=== PATIENT | male | born 1965 | race African-American/Black ===

== ENCOUNTER 2017-08-03 22:23 | Emergency (ER) | payer MEDICARE, MEDICAID ==
[2017-08-04 00:03] LABS: #Basophils 0.1 thou/uL (0.0-0.2); #Eosinphils 0.2 thou/uL (0.0-0.7); #Lymphocytes 3.1 thou/uL (1.20-3.40); #Monocytes 0.6 thou/uL (0.11-0.59); %Basophils 0.9 % (0.0-1.0); %Eosinophils 2.4 % (0.0-10.0); %Lymphocytes 34.4 % (21.0-51.0); %Monocytes 6.9 % (0.0-10.0); %Neutrophils 55.4 % (42.0-75.0); Hemoglobin 14.4 g/dL (14.0-18.0); Mean Corpuscular HGB CONC 33.6 g/dL (32.0-36.0); Mean Corpuscular Hemoglobin 31.9 pg (27.0-31.0); Mean Corpuscular Volume 94.9 fl (80.0-94.0); Mean Platelet Volume 6.3 fL (7.4-10.4); Platelet Count 372 thou/uL (130-400); RBC Distribution Width 11.8 % (11.5-14.5); Red Blood Cell (RBC) Count 4.52 mill/uL (4.70-6.10); White Blood Cell (WBC) Count 9.1 thou/uL (4.8-10.8)
[2017-08-04] MEDS ORDERED: Morphine 4 MG/ML VIAL ONE (00:31)
[2017-08-04 00:33] LABS: ALT (SGPT) 28 U/L (8-55); AST (SGOT) 25 U/L (5-34); Albumin 4.3 g/dL (3.5-5.0); Alkaline Phosphatase 120 U/L (40-150); Anion Gap 9 mmol/L (10-20); BUN (Urea Nitrogen) 14 mg/dL (8.4-25.7); Bilirubin, Total 0.4 mg/dL (0.2-1.2); Calc. Creatinine Clearance 0 mL/min (70-130); Calcium 10.6 mg/dL (7.8-10.44); Carbon Dioxide 29 mmol/L (22-29); Chloride 103 mmol/L (98-107); Estimated GFR-MDRD Greater than 90; Globulin 4.1 g/dL (2.4-3.5); Glucose 178 mg/dL (70-105); Potassium 4.2 mmol/L (3.5-5.1); Protein, Total 8.4 g/dL (6.0-8.3); Sodium 137 mmol/L (136-145)
[2017-08-04 00:37] LABS: Bilirubin Negative (Negative); Blood, Urine Negative (Negative); Clarity CLEAR (Clear); Glucose, Urine (Dipstick) 500 mg/dL (Negative); Leukocyte Negative (Negative); Nitrite Negative (Negative); Protein, Urine (Dipstick) Negative (Neg-Trace); Specific Gravity, Urine 1.027 (1.002-1.036); pH, Urine 6.5 (5.0-9.0)
[2017-08-04] MEDS ORDERED: Ketorolac Tromethamine 30 MG/ML VIAL ONE (02:55)
--- NOTE | 2017-08-04 09:00 | CT ---
PRELIMINARY REPORT/[facility]/EMERGENTY AFTER-HOURS PROCEDURE CT Abdomen and Pelvis Without Intravenous Contrast CLINICAL HISTORY: 51 years old, male; Pain; Abdominal pain; Flank; Right upper quadrant (ruq); Patient HX: 51m reports r flank pain starting yesterday, not migrating into lower abdomen. Pain in waves, shooting, denies na usea or vomiting or change in urination or stool. TECHNIQUE: Axial computed tomography images of the abdomen and pelvis without intravenous contrast. Coronal refo rmatted images were created and reviewed. COMPARISON: No relevant prior studies available. FINDINGS: Lung bases: Normal. No mass. No consolidation. ABDOMEN: Liver: Normal. Gallbladder and bile ducts: Normal. Pancreas: Normal. Spleen: Normal. Adrenals: Normal. Kidneys and ureters: Bilateral simple renal cysts, the largest on the left measuring 2.9 cm in diamet er. Stomach and bowel: Normal. PELVIS: Appendix: Appendix is normal. Bladder: Normal. Reproductive: Normal as visualized. ABDOMEN and PELVIS: Intraperitoneal space: Normal. No free air. No significant fluid collection. Bones/joints: Partially visualized nondisplaced subacute appearing left posterolateral eighth rib fra cture. Degenerative changes of the visualized lower thoracic spine. No dislocation. Soft tissues: Normal. Vasculature: Atherosclerotic disease of the abdominal aorta and iliac arteries. Phleboliths within th e pelvis. No abdominal aortic aneurysm. Lymph nodes: Normal. IMPRESSION: 1. Partially visualized nondisplaced subacute appearing left posterolateral eighth rib fracture. 2. Incidental/non-acute findings are described above. Thank you for allowing us to participate in the care of your patient. Dictated and Authenticated by: Lewis Finch MD 08/04/2017 12:56 AM Central Time ([place] & [place]) FINAL REPORT CT ABDOMEN AND PELVIS WITHOUT CONTRAST STONE PROTOCOL: HISTORY: Right flank pain. COMPARISON: None. FINDINGS: Findings and impression are concordant with the preliminary report. No acute inflammatory process in the abdomen or pelvis. There is calcification of the common left adductor tendon likely from prior injury. 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 POS: [facility]
== END 2017-08-04 03:40 | disposition home or self-care (01) ==
LOC: ERS 22:23
DX: S39.012A Strain of muscle, fascia and tendon of lower back, initial encounter (principal); S29.012A Strain of muscle and tendon of back wall of thorax, initial encounter; E78.5 Hyperlipidemia, unspecified; I48.91 Unspecified atrial fibrillation; E11.9 Type 2 diabetes mellitus without complications; I10 Essential (primary) hypertension; Z79.4 Long term (current) use of insulin; F17.210 Nicotine dependence, cigarettes, uncomplicated; X58.XXXA Exposure to other specified factors, initial encounter
CPT/HCPCS: 36415; 74176; 80053; 81003; 85025; 96374; 96375; J1885; J2270

== ENCOUNTER 2017-10-12 13:02 | Outpatient (CLI) | payer MEDICARE, MEDICAID ==
--- NOTE | 2017-10-12 16:35 | MRI ---
MRI PELVIS WITH AND WITHOUT CONTRAST: Date: 10/12/17 HISTORY: Old injury. Pain. COMPARISON: CT from 08/04/17. FINDINGS: Bones: No acute fracture. No malalignment. No stress edema. There is ossification of the anterior labrum bilaterally. Acetabular osteophytes are also present. There is old injury of the left superior pubic ramus/pubic body at the cone insertion of the adductor longus and pectineus tendons. This is an old displaced avulsion/heterotopic ossification. Muscles: Muscle signal and bulk is normal. Intrapelvic Soft Tissues: Unremarkable. IMPRESSION: 1. Large ossicle/heterotopic ossification at the insertion of the left adductor longus tendon and pe ctineus tendon from prior injury. No significant edema to suggest chronicity and lack of micromotion. 2. Ossification in both lateral labrum, as well as anterior acetabular and lateral acetabular osteop hyte formation. 3. Moderate degenerative disease of the L5-S1 disc space. POS: [facility]
== END 2017-10-12 13:03 | disposition home or self-care (01) ==
LOC: SCSMRI 13:02
PROVIDERS: ATTEND Family Medicine
DX: R10.2 Pelvic and perineal pain (principal); M51.37 Other intervertebral disc degeneration, lumbosacral region; M25.759 Osteophyte, unspecified hip
CPT/HCPCS: 72197

== ENCOUNTER 2017-12-14 06:15 | Day surgery (SDC) | payer MEDICARE, MEDICAID ==
[2017-12-13 16:19] VITALS: BMI 23.7
[2017-12-14] MEDS ORDERED: Diazepam 5 MG TAB ONE (06:29)
[2017-12-14] MEDS ORDERED: Lidocaine 1% (PF) 30 ML VIAL ONE (06:38)
[2017-12-14 06:59] LABS: #Basophils 0.1 thou/uL (0.0-0.2); #Eosinphils 0.4 thou/uL (0.0-0.7); #Lymphocytes 2.8 thou/uL (1.20-3.40); #Monocytes 0.6 thou/uL (0.11-0.59); #Neutrophils 6.1 thou/uL (1.40-6.50); %Basophils 0.7 % (0.0-1.0); %Eosinophils 3.8 % (0.0-10.0); %Lymphocytes 27.8 % (21.0-51.0); %Monocytes 6.3 % (0.0-10.0); %Neutrophils 61.3 % (42.0-75.0); Hemoglobin 12.3 g/dL (14.0-18.0); Mean Corpuscular HGB CONC 33.2 g/dL (32.0-36.0); Mean Corpuscular Hemoglobin 31.1 pg (27.0-31.0); Mean Corpuscular Volume 93.6 fL (78.0-98.0); Mean Platelet Volume 6.5 fL (7.4-10.4); Platelet Count 444 thou/uL (130-400); RBC Distribution Width 11.8 % (11.5-14.5); Red Blood Cell (RBC) Count 3.97 mill/uL (4.70-6.10)
[2017-12-14 07:04] LABS: INR-International Normal Ratio 0.9; PTT 34.4 SEC (22.9-36.1); Prothrombin Time 12.5 SEC (12.0-14.7)
[2017-12-14] MEDS ORDERED: Midazolam HCl 2 mg/2 ml Vial ONE (07:23)
[2017-12-14] MEDS ORDERED: Fentanyl 100 MCG/2 ML VIAL ONE (07:23)
[2017-12-14] MEDS ORDERED: Nitroglycerin 100MG/250ML BOT 250 ML ONE (07:48)
[2017-12-14] MEDS ORDERED: Iopamidol 370 76% 100 ML VIAL ONE (09:33)
== END 2017-12-14 13:15 | disposition home or self-care (01) ==
LOC: CCL 06:15
PROVIDERS: ATTEND Internal Medicine Cardiovascular Disease
PROC: 4A023N7 Measurement of Cardiac Sampling and Pressure, Left Heart, Percutaneous Approach (ICD-10-PCS; principal; 2017-12-14)
PROC: B2111ZZ Fluoroscopy of Multiple Coronary Arteries using Low Osmolar Contrast (ICD-10-PCS; 2017-12-14)
DX: I25.118 Atherosclerotic heart disease of native coronary artery with other forms of angina pectoris (principal); E78.00 Pure hypercholesterolemia, unspecified; I95.1 Orthostatic hypotension; I10 Essential (primary) hypertension; E11.9 Type 2 diabetes mellitus without complications; F17.210 Nicotine dependence, cigarettes, uncomplicated; Z79.4 Long term (current) use of insulin; Z79.899 Other long term (current) drug therapy; Z88.8 Allergy status to other drugs, medicaments and biological substances
CPT/HCPCS: 76942; 85025; 85610; 85730; 93458; C1769; 36415; 99152; 99153; J1644; J2001; J2250; J3010

== ENCOUNTER 2018-09-21 02:36 | Emergency (ER) | payer MEDICARE, MEDICAID ==
[2018-09-21] MEDS ORDERED: Lidocaine Viscous Sol 2% 15 ml UD Cup ONE (03:16)
[2018-09-21] MEDS ORDERED: Mag-Al 1200 mg/1200 mg/30 ML UDCUP ONE (03:16)
[2018-09-21] MEDS ORDERED: Dexamethasone 4 MG TAB ONE (03:16)
== END 2018-09-21 03:50 | disposition home or self-care (01) ==
LOC: ERS 02:36
DX: J02.9 Acute pharyngitis, unspecified (principal); H92.09 Otalgia, unspecified ear; I48.91 Unspecified atrial fibrillation; E78.5 Hyperlipidemia, unspecified; E11.9 Type 2 diabetes mellitus without complications; F17.210 Nicotine dependence, cigarettes, uncomplicated; Z79.4 Long term (current) use of insulin
CPT/HCPCS: 99282; J8540

== ENCOUNTER 2018-09-26 18:32 | Emergency (ER) | payer MEDICARE, OTHER | END 2018-09-26 20:20 | disposition home or self-care (01) | LOC: ERS 18:32 | DX: R59.0 Localized enlarged lymph nodes (principal); I49.9 Cardiac arrhythmia, unspecified; I48.91 Unspecified atrial fibrillation; I10 Essential (primary) hypertension; E11.9 Type 2 diabetes mellitus without complications; E78.5 Hyperlipidemia, unspecified; F17.210 Nicotine dependence, cigarettes, uncomplicated; Z79.4 Long term (current) use of insulin | CPT/HCPCS: 93005 ==

== ENCOUNTER 2018-11-14 10:43 | Outpatient (CLI) | payer MEDICARE, OTHER ==
--- NOTE | 2018-11-14 10:58 | RAD ---
2 views of the lumbar spine: 11/14/2018 COMPARISON: None HISTORY: Acute bilateral low back pain FINDINGS: 5 lumbar type vertebral bodies are present. Lumbar pedicles appear intact on frontal imaging. There is multilevel mild disc space narrowing. There is significant anterior osteophyte formation at L1-2, L2-3, and L3-4. There is lower lumbar spine facet hypertrophy at L4-5 and L5-S1. No acute fracture identified. IMPRESSION: Multilevel degenerative change. No acute osseous abnormality. Recommend MRI if there are radicular symptoms.
== END 2018-11-14 10:44 | disposition home or self-care (01) ==
LOC: BICRAD 10:43
PROVIDERS: ATTEND Family Medicine
DX: M54.5 Low back pain (principal); M47.816 Spondylosis without myelopathy or radiculopathy, lumbar region
CPT/HCPCS: 36415; 72100; 80061; 80069; 82330; 83036; 83970; 84450; 84460; 85540

== ENCOUNTER 2020-02-27 07:01 | Outpatient (CLI) | payer MEDICARE, MEDICAID ==
--- NOTE | 2020-02-27 08:48 | CT ---
Low-dose screening chest CT: 02/27/2020 COMPARISON: None. HISTORY: Lung cancer screening exam, current smoker, personal history of nicotine dependence. TECHNIQUE: Axial CT imaging at 2 mm intervals through the chest without contrast using the low-dose s creening chest CT protocol. Coronal and sagittal reformatted imaging obtained. FINDINGS: Limited assessment of the upper abdomen demonstrates partially visualized bilateral renal cysts measu ring up to 3.5 cm on the left. Scattered atherosclerotic calcification of the imaged upper abdominal aorta is noted. There is no pleural, pericardial, or mediastinal fluid seen. The lack of contrast media limits assessment of the imaged viscera, the vascular structures, and for lymphadenopathy. There is atherosclerotic calcification of the coronary arterial vasculature. No pneumothorax noted. Linear density in the lingula on axial image 100 and coronal image 56 noted, likely representing scar and/or volume loss. No dominant pulmonary parenchymal mass lesion/nodule is noted within the left lung. There is a linear area of increased density within the lateral right upper lobe on axial image 51 sug gesting scar and/or volume loss. No suspicious pulmonary parenchymal mass lesion/nodule is appreciated within the right lung. There is linear scar within the anterior aspect of the right middl e lobe. Review of the osseous structures demonstrates no worrisome lytic or blastic bone lesion. There is mul tilevel anterior/right lateral thoracic spine osteophyte formation. There is a small intramuscular lipoma posterior to the medial aspect of the left 11th rib. IMPRESSION: 1. Lung RADS category 1-negative. Recommend continued annual low-dose screening chest CT. 2. Lung RADS category S: Atherosclerotic disease including coronary arterial calcification. Incomple tely assessed bilateral renal cysts. Transcribed Date/Time: 02/27/2020 8:56 AM
== END 2020-02-27 07:02 | disposition home or self-care (01) ==
LOC: BICCT 07:01
PROVIDERS: ATTEND Nurse Practitioner Family
DX: Z12.2 Encounter for screening for malignant neoplasm of respiratory organs (principal); Z87.891 Personal history of nicotine dependence; I25.10 Atherosclerotic heart disease of native coronary artery without angina pectoris
CPT/HCPCS: G0297

== ENCOUNTER 2020-06-28 18:38 | Emergency (ER) | payer MEDICARE, MEDICAID ==
[2020-06-28] MEDS ORDERED: Dexamethasone 4 MG TAB ONE (19:00)
[2020-06-29 03:30] LABS: SARS-CoV-2 PCR by NAA Not Detected (NotDetected)
== END 2020-06-28 19:52 | disposition home or self-care (01) ==
LOC: ERS 18:38
DX: R05 Cough (principal); Z20.822 Contact with and (suspected) exposure to COVID-19; E78.5 Hyperlipidemia, unspecified; F17.210 Nicotine dependence, cigarettes, uncomplicated; I10 Essential (primary) hypertension; Z79.899 Other long term (current) drug therapy; Z79.82 Long term (current) use of aspirin
CPT/HCPCS: 93005; 99281; U0003; U0005; 87635; J8540

== ENCOUNTER 2020-09-03 00:47 | Inpatient (IN) | payer MEDICARE, MEDICAID ==
[2020-09-03 01:36] LABS: #Monocytes 0.4 thou/uL (0.11-0.59); #Neutrophils 7.9 thou/uL (1.40-6.50); %Basophils 0.1 % (0.0-1.0); %Eosinophils 0.1 % (0.0-10.0); %Lymphocytes 10.6 % (21.0-51.0); %Monocytes 4.1 % (0.0-10.0); %Neutrophils 85.1 % (42.0-75.0); Mean Corpuscular HGB CONC 34.8 g/dL (32.0-36.0); Mean Corpuscular Hemoglobin 31.7 pg (27.0-31.0); Mean Corpuscular Volume 91.1 fL (78.0-98.0); Mean Platelet Volume 8.3 fL (7.4-10.4); Platelet Count 210 thou/uL (130-400); RBC Distribution Width 12.4 % (11.5-14.5); Red Blood Cell (RBC) Count 4.12 mill/uL (4.70-6.10); White Blood Cell (WBC) Count 9.3 thou/uL (4.8-10.8)
[2020-09-03 01:57] LABS: ALT (SGPT) 87 U/L (8-55); AST (SGOT) 119 U/L (5-34); Albumin 3.6 g/dL (3.5-5.0); Alkaline Phosphatase 94 U/L (40-110); Anion Gap 21 mmol/L (10-20); BUN (Urea Nitrogen) 23 mg/dL (8.4-25.7); CK (CPK) 281 U/L (30-200); Calc. Creatinine Clearance 0 mL/min (70-130); Calcium 9.4 mg/dL (7.8-10.44); Carbon Dioxide 12 mmol/L (22-29); Chloride 98 mmol/L (98-107); Globulin 3.8 g/dL (2.4-3.5); Glucose 426 mg/dL (70-105); Lipase 32 U/L (8-78); Protein, Total 7.4 g/dL (6.0-8.3); Sodium 127 mmol/L (136-145)
[2020-09-03 02:32] LABS: Actual Bicarbonate (HCO3v) 16 mEq/L (22-28); Analyzer IN Cardio ER; Base Excess -7.4 mEq/L (-2.0 to +3.0); Calcium, Ionized (venous) 1.13 mmol/L (1.16-1.32); Chloride (VBG) 101 mmol/L (98-106); Hemoglobin (Hb) 12.2 g/dL (13.1-17.2); Potassium (VBG) 3.78 mmol/L (3.70-5.30); Sodium 127.6 mmol/L (133-146); pH (venous) 7.39 (7.32-7.43)
[2020-09-03] MEDS ORDERED: Cefepime 1 GM VIAL ONE (02:54)
[2020-09-03] MEDS ORDERED: Cefepime 2 GM VIAL ONE (02:54)
[2020-09-03] MEDS ORDERED: Vancomycin 1.5 GRAM/300 ML BAG 1.5 GM in Premix Bag 1 BAG IVPB SCH (03:00)
[2020-09-03 03:49] LABS: Bilirubin Negative (Negative); Blood, Urine Small (Negative); Glucose, Urine (Dipstick) >=1000 mg/dL (Negative); Ketone, Urine Trace mg/dL (Negative); Leukocyte Negative (Negative); Nitrite Negative (Negative); Protein, Urine (Dipstick) Negative (Neg-Trace); Urobilinogen 0.2 mg/dL (Less than 2)
[2020-09-03 03:59] LABS: Clarity Clear (Clear)
[2020-09-03 04:00] LABS: Specific Gravity, Urine Greater than 1.036 (1.002-1.036)
[2020-09-03 04:33] LABS: SARS-CoV-2 NAA Rapid Test Not Detected (NotDetected)
[2020-09-03 04:36] LABS: Lactic Acid 1.3 mmol/L (0.5-2.2)
[2020-09-03] MEDS ORDERED: INSULIN REGULAR IN 0.9 % NACL 100 UNIT/100 ML BAG ONE (05:04)
[2020-09-03] MEDS ORDERED: NS 0.9% w/ 20 MEQ KCL 1,000 ML ONE (05:12)
[2020-09-03] MEDS ORDERED: D5 1/2 NS w/20 mEq KCL 1,000 ML ONE (06:39)
[2020-09-03] MEDS ORDERED: Ondansetron PF 4 MG/2 ML Vial IVP PRN (06:54)
[2020-09-03] MEDS ORDERED: Electrolyte Replacement Protocol 1 EACH IVPB SCH (06:54)
[2020-09-03] MEDS ORDERED: Dextrose 5 %-0.45 % NaCl 1,000 ML IV PRN (06:54)
[2020-09-03] MEDS ORDERED: Sodium Chloride 0.9% 1,000 ML IV PRN ×4 (06:54)
[2020-09-03] MEDS ORDERED: Acetaminophen 325 MG TAB PO PRN (06:54)
[2020-09-03] MEDS ORDERED: NS 0.9% w/ 20 MEQ KCL 1,000 ML IV PRN ×2 (06:54)
[2020-09-03] MEDS ORDERED: HUMULIN R 100 UNITS in Sodium Chloride 0.9% 100 ML IVPB SCH (07:00)
[2020-09-03 07:23] LABS: Hemoglobin A1c 7.2 % (4.0-6.0)
[2020-09-03 07:39] LABS: Acetaminophen Less than 6.0 mcg/mL (10.0-30.0); Anion Gap 19 mmol/L (10-20); BUN (Urea Nitrogen) 19 mg/dL (8.4-25.7); Calc. Creatinine Clearance 0 mL/min (70-130); Calcium 8.7 mg/dL (7.8-10.44); Chloride 109 mmol/L (98-107); Glucose 206 mg/dL (70-105); Potassium 4.8 mmol/L (3.5-5.1); Sodium 131 mmol/L (136-145)
[2020-09-03 07:48] LABS: Carbon Dioxide 8 mmol/L (22-29)
[2020-09-03 08:03] VITALS: BMI 23.7
[2020-09-03 08:15] LABS: Medtox Reader # READER 4
[2020-09-03 08:16] LABS: Amphetamine Not Detected (NotDetected); Barbiturates Screen Not Detected (NotDetected); Benzodiazepine Screen Not Detected (NotDetected); Cocaine Metabolite Screen Not Detected (NotDetected); Medtox Control Line Valid? VALID (VALID); Methadone Not Detected (NotDetected); Methamphetamine Not Detected (NotDetected); Opiate Screen Not Detected (NotDetected); Oxycodone Screen Not Detected (NotDetected); Phencyclidine (PCP) Not Detected (NotDetected); THC/Cannabinoid Screen Detected (NotDetected); Tricyclic Screen Not Detected (NotDetected)
[2020-09-03] MEDS: Amlodipine 5 MG TAB PO SCH (09:13)
[2020-09-03] MEDS: Famotidine 20 MG TAB PO SCH ×2 (09:14→20:29)
[2020-09-03 09:21] LABS: HBCM Index 0.06 S/CO (0-0.79); HBSAg Index 0.24 S/CO (0-0.99); Hep A IgM AB Non-Reactive (NonReactive); Hep A IgM S/CO 0.11 S/CO (0-0.79); Hep B Surf Ag Non-Reactive S/CO (NonReactive); Hep C IgG Ab Non-Reactive (NonReactive); Hep C Index 0.11 S/CO (0-0.79); Hepatitis B Core IgM Abs Non-Reactive (NonReactive)
[2020-09-03] MEDS ORDERED: Iopamidol-370 76% 500 ML 1 ML ONE (09:23)
[2020-09-03 11:49] LABS: Anion Gap 15 mmol/L (10-20); BUN (Urea Nitrogen) 16 mg/dL (8.4-25.7); Calc. Creatinine Clearance 76 mL/min (70-130); Carbon Dioxide 14 mmol/L (22-29); Chloride 106 mmol/L (98-107); Glucose 270 mg/dL (70-105); Potassium 4.2 mmol/L (3.5-5.1); Sodium 131 mmol/L (136-145)
[2020-09-03 16:13] LABS: Anion Gap 14 mmol/L (10-20); BUN (Urea Nitrogen) 12 mg/dL (8.4-25.7); Calc. Creatinine Clearance 84 mL/min (70-130); Carbon Dioxide 16 mmol/L (22-29); Chloride 106 mmol/L (98-107); Glucose 156 mg/dL (70-105); Potassium 4.2 mmol/L (3.5-5.1); Sodium 132 mmol/L (136-145)
[2020-09-03] MEDS: D5 1/2 NS w/20 mEq KCL 1,000 ML IV PRN (21:34)
[2020-09-03] MEDS: Acetaminophen 500 MG TAB PO PRN (23:19)
[2020-09-03] MEDS ORDERED: Ibuprofen 600 MG TAB PO PRN (23:42)
[2020-09-04] MEDS: D5 1/2 NS w/20 mEq KCL 1,000 ML IV PRN ×2 (02:05→05:34)
[2020-09-04 03:22] LABS: #Lymphocytes 0.8 thou/uL (1.20-3.40); #Monocytes 0.1 thou/uL (0.11-0.59); #Neutrophils 4.6 thou/uL (1.40-6.50); %Basophils 0.3 % (0.0-1.0); %Eosinophils 0.2 % (0.0-10.0); %Lymphocytes 13.8 % (21.0-51.0); %Monocytes 2.5 % (0.0-10.0); %Neutrophils 83.2 % (42.0-75.0); Hemoglobin 11.5 g/dL (14.0-18.0); Mean Corpuscular HGB CONC 35.1 g/dL (32.0-36.0); Mean Corpuscular Hemoglobin 32.1 pg (27.0-31.0); Mean Corpuscular Volume 91.5 fL (78.0-98.0); Mean Platelet Volume 8.5 fL (7.4-10.4); Platelet Count 181 thou/uL (130-400); RBC Distribution Width 12.2 % (11.5-14.5); Red Blood Cell (RBC) Count 3.58 mill/uL (4.70-6.10); White Blood Cell (WBC) Count 5.6 thou/uL (4.8-10.8)
[2020-09-04 03:41] LABS: ALT (SGPT) 65 U/L (8-55); AST (SGOT) 87 U/L (5-34); Albumin 2.8 g/dL (3.5-5.0); Alkaline Phosphatase 75 U/L (40-110); Anion Gap 13 mmol/L (10-20); BUN (Urea Nitrogen) 6 mg/dL (8.4-25.7); Bilirubin, Direct 0.9 mg/dL (0.1-0.3); Bilirubin, Total 1.2 mg/dL (0.2-1.2); Calc. Creatinine Clearance 104 mL/min (70-130); Calcium 8.9 mg/dL (7.8-10.44); Carbon Dioxide 18 mmol/L (22-29); Chloride 103 mmol/L (98-107); Globulin 3.1 g/dL (2.4-3.5); Glucose 159 mg/dL (70-105); Potassium 3.9 mmol/L (3.5-5.1); Protein, Total 5.9 g/dL (6.0-8.3); Sodium 130 mmol/L (136-145)
[2020-09-04 03:50] LABS: Anion Gap 13 mmol/L (10-20); BUN (Urea Nitrogen) 6 mg/dL (8.4-25.7); Calc. Creatinine Clearance 98 mL/min (70-130); Carbon Dioxide 17 mmol/L (22-29); Chloride 104 mmol/L (98-107); Glucose 156 mg/dL (70-105); Potassium 3.9 mmol/L (3.5-5.1); Sodium 130 mmol/L (136-145)
[2020-09-04] MEDS: Amlodipine 5 MG TAB PO SCH (07:18)
[2020-09-04] MEDS: Famotidine 20 MG TAB PO SCH ×2 (07:18→20:40)
[2020-09-04] MEDS ORDERED: Dextrose 50% Abboject 50 ML SYRINGE SLOW IVP PRN ×2 (08:10→10:54)
[2020-09-04] MEDS ORDERED: Insulin Regular 300 UNITS/3 ML VIAL SC PRN ×2 (08:10)
[2020-09-04] MEDS ORDERED: Dextrose 5% in Water 1,000 ML IV PRN ×2 (08:10→10:54)
[2020-09-04] MEDS ORDERED: Lantus 1000 UNITS/10 ML VIAL SC SCH (09:00)
[2020-09-04] MEDS: Lactated Ringer's 1,000 ML IV SCH ×2 (09:57→16:34)
[2020-09-04] MEDS ORDERED: HumaLOG 300 UNITS/3 ML VIAL SC PRN (10:54)
[2020-09-04] MEDS ORDERED: HumuLIN 70/30 (300 UNITS/3 ML VIAL) SC SCH (15:00)
[2020-09-04] MEDS: HumaLOG 300 UNITS/3 ML VIAL SC PRN (16:32)
[2020-09-04] MEDS: Lantus 1000 UNITS/10 ML VIAL SC SCH (20:40)
[2020-09-04] MEDS: Amitriptyline HCl 10 MG TAB PO SCH (20:40)
[2020-09-05] MEDS: Acetaminophen 500 MG TAB PO PRN ×3 (00:15→21:24)
[2020-09-05] MEDS: Lactated Ringer's 1,000 ML IV SCH ×2 (04:48→17:01)
[2020-09-05 06:14] LABS: Anion Gap 16 mmol/L (10-20); BUN (Urea Nitrogen) 11 mg/dL (8.4-25.7); Calc. Creatinine Clearance 87 mL/min (70-130); Calcium 9.3 mg/dL (7.8-10.44); Carbon Dioxide 17 mmol/L (22-29); Chloride 103 mmol/L (98-107); Glucose 190 mg/dL (70-105); Potassium 4.5 mmol/L (3.5-5.1); Sodium 131 mmol/L (136-145)
[2020-09-05 06:15] LABS: Band 22 % (5-11); Hemoglobin 12.2 g/dL (14.0-18.0); Lymphocytes 13 % (21-51); MDiff Complete? YES; Mean Corpuscular HGB CONC 34.7 g/dL (32.0-36.0); Mean Corpuscular Hemoglobin 31.8 pg (27.0-31.0); Mean Corpuscular Volume 91.8 fL (78.0-98.0); Mean Platelet Volume 9.6 fL (7.4-10.4); Monocytes 1 % (0-10); Neutrophil 64 % (42-75); Platelet Count 182 thou/uL (130-400); Platelet Morphology Comment Appears Adequate; RBC Distribution Width 12.3 % (11.5-14.5); Red Blood Cell (RBC) Count 3.83 mill/uL (4.70-6.10); White Blood Cell (WBC) Count 7.3 thou/uL (4.8-10.8)
[2020-09-05 06:26] LABS: ALT (SGPT) 64 U/L (8-55); AST (SGOT) 100 U/L (5-34); Albumin 2.8 g/dL (3.5-5.0); Alkaline Phosphatase 96 U/L (40-110); Anion Gap 17 mmol/L (10-20); BUN (Urea Nitrogen) 11 mg/dL (8.4-25.7); Bilirubin, Direct 2.2 mg/dL (0.1-0.3); Calc. Creatinine Clearance 87 mL/min (70-130); Calcium 9.3 mg/dL (7.8-10.44); Carbon Dioxide 16 mmol/L (22-29); Chloride 104 mmol/L (98-107); Globulin 3.1 g/dL (2.4-3.5); Glucose 189 mg/dL (70-105); Potassium 4.6 mmol/L (3.5-5.1); Protein, Total 5.9 g/dL (6.0-8.3); Sodium 132 mmol/L (136-145)
[2020-09-05] MEDS ORDERED: Amlodipine 5 MG TAB PO SCH (09:00)
[2020-09-05] MEDS: Sodium Bicarbonate Tab 325 MG TAB PO SCH ×2 (09:32→21:25)
[2020-09-05] MEDS: Bupropion 150 MG XL TAB PO SCH (09:33)
[2020-09-05] MEDS: Montelukast Sodium 10 mg Tablet PO SCH (09:33)
[2020-09-05] MEDS: Famotidine 20 MG TAB PO SCH (09:33)
[2020-09-05] MEDS: Aspirin 81 mg Enteric Coated Tablet PO SCH (09:33)
[2020-09-05] MEDS: Gabapentin 300 MG CAP PO SCH (09:34)
[2020-09-05] MEDS: Lantus 1000 UNITS/10 ML VIAL SC SCH ×2 (09:40→21:33)
[2020-09-05] MEDS: HumaLOG 300 UNITS/3 ML VIAL SC PRN ×2 (11:26→17:12)
[2020-09-05] MEDS ORDERED: Pantoprazole 40 MG VIAL IVP SCH (12:15)
[2020-09-05 12:58] LABS: MONO NEGATIVE CONTROL ZONE White (Negative) (White); MONO POSITIVE CONTROL Pink Line (Positive) (PINK/RED); Mononucleosis NEGATIVE (NEGATIVE)
[2020-09-05] MEDS ORDERED: Sucralfate 1 GM TAB PO SCH (17:00)
[2020-09-05] MEDS ORDERED: Doxycycline 100 MG CAP PO SCH (18:15)
[2020-09-05] MEDS: Amitriptyline HCl 10 MG TAB PO SCH (21:26)
[2020-09-05] MEDS: Doxycycline 100 MG CAP PO SCH (21:26)
[2020-09-06] MEDS ORDERED: Lactated Ringer's 500 ML IV SCH (05:15)
[2020-09-06 05:44] LABS: Mean Corpuscular HGB CONC 33.6 g/dL (32.0-36.0); Mean Corpuscular Hemoglobin 31.1 pg (27.0-31.0); Mean Corpuscular Volume 92.7 fL (78.0-98.0); Mean Platelet Volume 10.3 fL (7.4-10.4); Platelet Count 139 thou/uL (130-400); RBC Distribution Width 12.5 % (11.5-14.5); Red Blood Cell (RBC) Count 3.86 mill/uL (4.70-6.10); White Blood Cell (WBC) Count 6.9 thou/uL (4.8-10.8)
[2020-09-06 05:58] LABS: ALT (SGPT) 63 U/L (8-55); AST (SGOT) 107 U/L (5-34); Albumin 2.6 g/dL (3.5-5.0); Alkaline Phosphatase 97 U/L (40-110); Anion Gap 15 mmol/L (10-20); BUN (Urea Nitrogen) 20 mg/dL (8.4-25.7); Bilirubin, Total 4.1 mg/dL (0.2-1.2); Calc. Creatinine Clearance 70 mL/min (70-130); Calcium 9.2 mg/dL (7.8-10.44); Carbon Dioxide 18 mmol/L (22-29); Chloride 105 mmol/L (98-107); Glucose 169 mg/dL (70-105); Potassium 4.1 mmol/L (3.5-5.1); Protein, Total 5.6 g/dL (6.0-8.3); Sodium 134 mmol/L (136-145)
[2020-09-06 06:20] LABS: Band 25 % (5-11); Lymphocytes 14 % (21-51); MDiff Complete? YES; Monocytes 1 % (0-10); Myelocyte 1 % (0-0); Neutrophil 59 % (42-75)
[2020-09-06] MEDS: Lactated Ringer's 1,000 ML IV SCH ×3 (06:20→13:06)
[2020-09-06 08:21] LABS: Ref Lab Test Ordered RICKETTSIA PCR; Reference Lab Name LABCORP
[2020-09-06 08:24] LABS: Ref Lab Test Ordered RICKETTSIA AB
[2020-09-06] MEDS ORDERED: Sodium Chloride 0.9% 1,000 ML IV SCH ×2 (08:45→12:45)
[2020-09-06] MEDS: Doxycycline 100 MG CAP PO SCH (09:03)
[2020-09-06] MEDS: Gabapentin 300 MG CAP PO SCH (09:04)
[2020-09-06] MEDS: Bupropion 150 MG XL TAB PO SCH (09:04)
[2020-09-06] MEDS: Sodium Bicarbonate Tab 325 MG TAB PO SCH ×2 (09:04→20:32)
[2020-09-06] MEDS: Montelukast Sodium 10 mg Tablet PO SCH (09:04)
[2020-09-06] MEDS: Aspirin 81 mg Enteric Coated Tablet PO SCH (09:04)
[2020-09-06] MEDS: Pantoprazole 40 MG VIAL IVP SCH (09:05)
[2020-09-06] MEDS: Acetaminophen 500 MG TAB PO PRN (09:07)
[2020-09-06] MEDS: Lantus 1000 UNITS/10 ML VIAL SC SCH ×2 (09:14→21:30)
[2020-09-06 11:36] LABS: Reference Lab Name LABCORP
[2020-09-06] MEDS ORDERED: Sodium Chloride 0.45% 1,000 ML IV SCH (12:30)
[2020-09-06] MEDS ORDERED: Guaifenesin DM 100-10/5 ML UDCUP PO PRN (16:04)
[2020-09-06] MEDS: Amitriptyline HCl 10 MG TAB PO SCH (20:32)
[2020-09-07] MEDS ORDERED: Baclofen 10 MG TAB PO SCH (01:45)
[2020-09-07 06:23] LABS: Hemoglobin 10.4 g/dL (14.0-18.0); Mean Corpuscular HGB CONC 35.7 g/dL (32.0-36.0); Mean Corpuscular Hemoglobin 32.6 pg (27.0-31.0); Mean Corpuscular Volume 91.4 fL (78.0-98.0); Mean Platelet Volume 10.6 fL (7.4-10.4); Platelet Count 104 thou/uL (130-400); RBC Distribution Width 12.6 % (11.5-14.5); White Blood Cell (WBC) Count 9.3 thou/uL (4.8-10.8)
[2020-09-07 06:34] LABS: ALT (SGPT) 51 U/L (8-55); AST (SGOT) 93 U/L (5-34); Albumin 2.3 g/dL (3.5-5.0); Alkaline Phosphatase 86 U/L (40-110); Anion Gap 14 mmol/L (10-20); BUN (Urea Nitrogen) 17 mg/dL (8.4-25.7); Bilirubin, Total 3.1 mg/dL (0.2-1.2); Calc. Creatinine Clearance 97 mL/min (70-130); Calcium 8.7 mg/dL (7.8-10.44); Carbon Dioxide 17 mmol/L (22-29); Chloride 111 mmol/L (98-107); Globulin 2.7 g/dL (2.4-3.5); Glucose 127 mg/dL (70-105); Potassium 3.9 mmol/L (3.5-5.1); Sodium 138 mmol/L (136-145)
[2020-09-07 06:50] LABS: Band 16 % (5-11); Lymphocytes 12 % (21-51); MDiff Complete? YES; Monocytes 4 % (0-10); Neutrophil 68 % (42-75); Platelet Morphology Comment Appears Decreased
[2020-09-07] MEDS: Sodium Bicarbonate Tab 325 MG TAB PO SCH ×2 (09:42→21:02)
[2020-09-07] MEDS: Bupropion 150 MG XL TAB PO SCH (09:42)
[2020-09-07] MEDS: Lactated Ringer's 1,000 ML IV SCH ×4 (09:42→22:48)
[2020-09-07] MEDS: Aspirin 81 mg Enteric Coated Tablet PO SCH (09:42)
[2020-09-07] MEDS: Gabapentin 300 MG CAP PO SCH (09:43)
[2020-09-07] MEDS: Montelukast Sodium 10 mg Tablet PO SCH (09:43)
[2020-09-07] MEDS: Pantoprazole 40 MG VIAL IVP SCH (09:44)
[2020-09-07] MEDS: Lantus 1000 UNITS/10 ML VIAL SC SCH ×2 (09:55→21:01)
[2020-09-07] MEDS ORDERED: chlorproMAZINE HCl 25 MG in Sodium Chloride 0.9% 50 ML IVPB PRN (10:36)
[2020-09-07] MEDS ORDERED: Enoxaparin Sodium 40 MG/0.4 ML SYRINGE SC SCH (10:45)
[2020-09-07] MEDS: Amitriptyline HCl 10 MG TAB PO SCH (21:02)
[2020-09-08 05:14] LABS: Anion Gap 13 mmol/L (10-20); BUN (Urea Nitrogen) 14 mg/dL (8.4-25.7); Calc. Creatinine Clearance 106 mL/min (70-130); Calcium 8.9 mg/dL (7.8-10.44); Carbon Dioxide 18 mmol/L (22-29); Chloride 114 mmol/L (98-107); Glucose 115 mg/dL (70-105); Potassium 3.8 mmol/L (3.5-5.1); Sodium 141 mmol/L (136-145)
[2020-09-08] MEDS: Acetaminophen 500 MG TAB PO PRN (08:36)
[2020-09-08] MEDS: Montelukast Sodium 10 mg Tablet PO SCH (08:37)
[2020-09-08] MEDS: Bupropion 150 MG XL TAB PO SCH (08:37)
[2020-09-08] MEDS: Sodium Bicarbonate Tab 325 MG TAB PO SCH (08:37)
[2020-09-08] MEDS: Aspirin 81 mg Enteric Coated Tablet PO SCH (08:37)
[2020-09-08] MEDS: Gabapentin 300 MG CAP PO SCH (08:38)
[2020-09-08] MEDS: Pantoprazole 40 MG VIAL IVP SCH (08:39)
[2020-09-08] MEDS: Lantus 1000 UNITS/10 ML VIAL SC SCH (08:40)
[2020-09-08] MEDS: Lactated Ringer's 1,000 ML IV SCH ×2 (08:43→16:13)
[2020-09-08] MEDS ORDERED: Enoxaparin Sodium 40 MG/0.4 ML SYRINGE SC SCH (09:00)
[2020-09-08 15:37] VITALS: BP 133/77; TEMP 97.9
== END 2020-09-08 16:35 | disposition left against medical advice (07) | DRG 871 ==
LOC: ERS 00:47 → ERHOLD 04:43 → IMCU/EMU 07:24 → 2SE 09-04 18:18
PROVIDERS: ADMIT Internal Medicine; ATTEND Internal Medicine
DX: A41.9 Sepsis, unspecified organism (principal); E11.10 Type 2 diabetes mellitus with ketoacidosis without coma; G93.41 Metabolic encephalopathy; E87.1 Hypo-osmolality and hyponatremia; N17.9 Acute kidney failure, unspecified; Z20.822 Contact with and (suspected) exposure to COVID-19; B88.2 Other arthropod infestations; E78.5 Hyperlipidemia, unspecified; I10 Essential (primary) hypertension; I25.10 Atherosclerotic heart disease of native coronary artery without angina pectoris; D64.9 Anemia, unspecified; F10.10 Alcohol abuse, uncomplicated; E78.2 Mixed hyperlipidemia; F17.210 Nicotine dependence, cigarettes, uncomplicated; F12.10 Cannabis abuse, uncomplicated; E86.0 Dehydration; R74.8 Abnormal levels of other serum enzymes; E11.40 Type 2 diabetes mellitus with diabetic neuropathy, unspecified; E11.65 Type 2 diabetes mellitus with hyperglycemia; R06.6 Hiccough; R19.7 Diarrhea, unspecified; Z79.899 Other long term (current) drug therapy; Z79.4 Long term (current) use of insulin; Z79.82 Long term (current) use of aspirin
CPT/HCPCS: 36415; 36416; 70450; 71045; 71046; 74177; 76705; 80048; 80053; 80074; 80076; 80143; 80306; 81003; 81015; 82010; 82550; 82805; 83036; 83605; 83690; 84484; 85025; 86308; 87040; 87086; 87633; 93005; 96365; 96366; 96367; 80307; C9113; J0692; J1650; J1815; J2405; J3230; J3370; J3480; J3490; Q9967; U0002; U0005

== ENCOUNTER 2022-10-03 20:57 | Observation (INO) | payer MEDICARE, OTHER ==
[2022-10-03] MEDS ORDERED: Acetaminophen 500 MG TAB ONE (21:14)
[2022-10-03] MEDS ORDERED: Boostrix 0.5 ML (Tdap) VIAL (>/=7 yrs of age) ONE (21:14)
[2022-10-03 21:33] LABS: #Eosinphils 0.2 thou/uL (0.0-0.7); #Monocytes 0.8 thou/uL (0.11-0.59); #Neutrophils 6.5 thou/uL (1.40-6.50); %Basophils 0.3 % (0.0-1.0); %Monocytes 7.6 % (0.0-10.0); %Neutrophils 58.6 % (42.0-75.0); Mean Corpuscular HGB CONC 32.5 g/dL (32.0-36.0); Mean Corpuscular Hemoglobin 30.8 pg (27.0-31.0); Mean Corpuscular Volume 94.9 fl (78.0-98.0); Mean Platelet Volume 9.6 fL (7.4-10.4); Platelet Count 365 10x3/uL (130-400); RBC Distribution Width 13.2 % (11.5-14.5); Red Blood Cell (RBC) Count 4.54 mill/uL (4.70-6.10); White Blood Cell (WBC) Count 11.1 10x3/uL (4.8-10.8)
[2022-10-03 21:58] LABS: ALT (SGPT) 24 U/L (8-55); AST (SGOT) 21 U/L (5-34); Albumin 4.8 g/dL (3.5-5.0); Alkaline Phosphatase 130 U/L (40-110); Anion Gap 16 mmol/L (10-20); BUN (Urea Nitrogen) 18 mg/dL (8.4-25.7); Bilirubin, Total 0.3 mg/dL (0.2-1.2); Calc. Creatinine Clearance 0 mL/min (70-130); Carbon Dioxide 20 mmol/L (22-29); Chloride 106 mmol/L (98-107); Estimated GFR 50; Globulin 3.6 g/dL (2.4-3.5); Glucose 109 mg/dL (70-105); Magnesium 2.3 mg/dL (1.6-2.6); Potassium 3.9 mmol/L (3.5-5.1); Protein, Total 8.4 g/dL (6.0-8.3); Sodium 138 mmol/L (136-145)
[2022-10-04] MEDS ORDERED: Glucagon 1 MG/ML KIT IM PRN (00:55)
[2022-10-04] MEDS ORDERED: Dextrose 5% in Water 1,000 ML IV PRN (00:55)
[2022-10-04] MEDS ORDERED: Acetaminophen 325 MG TAB PO PRN (00:55)
[2022-10-04] MEDS ORDERED: HumaLOG 300 UNITS/3 ML VIAL SC PRN ×2 (00:55)
[2022-10-04] MEDS ORDERED: Ondansetron PF 4 MG/2 ML Vial IVP PRN (00:55)
[2022-10-04] MEDS ORDERED: Ondansetron ODT 4 MG TAB PO PRN (00:55)
[2022-10-04] MEDS ORDERED: Dextrose 50% Abboject 50 ML SYRINGE SLOW IVP PRN (00:55)
[2022-10-04] MEDS ORDERED: Nicotine 21 MG PATCH TD PRN (00:55)
[2022-10-04 01:03] LABS: Troponin I Less than 0.010 ng/mL (< 0.028)
[2022-10-04 01:40] VITALS: BMI 23.8
[2022-10-04] MEDS ORDERED: Lorazepam 2 MG/ML VIAL SLOW IVP PRN (01:47)
[2022-10-04] MEDS: Sodium Chloride 0.9% 1,000 ML IV SCH ×2 (01:58→13:01)
[2022-10-04 02:38] LABS: #Eosinphils 0.3 thou/uL (0.0-0.7); #Monocytes 0.6 thou/uL (0.11-0.59); #Neutrophils 3.8 thou/uL (1.40-6.50); %Basophils 0.5 % (0.0-1.0); %Eosinophils 4.2 % (0.0-10.0); %Lymphocytes 41.1 % (21.0-51.0); %Monocytes 6.8 % (0.0-10.0); Hemoglobin 13.2 g/dL (14.0-18.0); Mean Corpuscular HGB CONC 32.2 g/dL (32.0-36.0); Mean Corpuscular Hemoglobin 30.6 pg (27.0-31.0); Mean Corpuscular Volume 94.9 fl (78.0-98.0); Mean Platelet Volume 9.8 fL (7.4-10.4); Platelet Count 346 10x3/uL (130-400); Red Blood Cell (RBC) Count 4.32 mill/uL (4.70-6.10); White Blood Cell (WBC) Count 8.1 10x3/uL (4.8-10.8)
[2022-10-04 03:15] LABS: Magnesium 2.1 mg/dL (1.6-2.6); Phosphorus 5.1 mg/dL (2.3-4.7)
[2022-10-04 03:31] LABS: Anion Gap 17 mmol/L (10-20); BUN (Urea Nitrogen) 17 mg/dL (8.4-25.7); Calc. Creatinine Clearance 80 mL/min (70-130); Calcium 9.9 mg/dL (7.8-10.44); Carbon Dioxide 19 mmol/L (22-29); Chloride 107 mmol/L (98-107); Estimated GFR 72; Glucose 124 mg/dL (70-105); Potassium 3.4 mmol/L (3.5-5.1); Sodium 140 mmol/L (136-145)
[2022-10-04] MEDS: Famotidine 20 MG TAB PO SCH ×2 (08:12→20:31)
[2022-10-04 08:35] LABS: Amphetamine Not Detected (NotDetected); Barbiturates Screen Not Detected (NotDetected); Benzodiazepine Screen Not Detected (NotDetected); Cocaine Metabolite Screen Not Detected (NotDetected); Methadone Not Detected (NotDetected); Methamphetamine Not Detected (NotDetected); Opiate Screen Not Detected (NotDetected); Oxycodone Screen Not Detected (NotDetected); Phencyclidine (PCP) Not Detected (NotDetected); THC/Cannabinoid Screen Not Detected (NotDetected); Tricyclic Screen Not Detected (NotDetected)
[2022-10-04] MEDS ORDERED: Magnevist 469MG/ML 20 ML VIAL ONE (11:53)
[2022-10-05 05:45] LABS: #Eosinphils 0.3 thou/uL (0.0-0.7); #Monocytes 0.8 thou/uL (0.11-0.59); #Neutrophils 4.6 thou/uL (1.40-6.50); %Basophils 0.5 % (0.0-1.0); %Eosinophils 2.8 % (0.0-10.0); %Lymphocytes 35.8 % (21.0-51.0); %Monocytes 9.2 % (0.0-10.0); %Neutrophils 51.5 % (42.0-75.0); Hemoglobin 12.6 g/dL (14.0-18.0); Mean Corpuscular HGB CONC 32.7 g/dL (32.0-36.0); Mean Corpuscular Hemoglobin 30.5 pg (27.0-31.0); Mean Corpuscular Volume 93.2 fl (78.0-98.0); Mean Platelet Volume 9.8 fL (7.4-10.4); Platelet Count 293 10x3/uL (130-400); RBC Distribution Width 12.8 % (11.5-14.5); Red Blood Cell (RBC) Count 4.13 mill/uL (4.70-6.10); White Blood Cell (WBC) Count 8.8 10x3/uL (4.8-10.8)
[2022-10-05 06:20] LABS: Anion Gap 13 mmol/L (10-20); BUN (Urea Nitrogen) 17 mg/dL (8.4-25.7); Calc. Creatinine Clearance 93 mL/min (70-130); Calcium 9.6 mg/dL (7.8-10.44); Carbon Dioxide 23 mmol/L (22-29); Chloride 109 mmol/L (98-107); Estimated GFR 86; Glucose 156 mg/dL (70-105); Potassium 3.6 mmol/L (3.5-5.1); Sodium 141 mmol/L (136-145)
[2022-10-05 08:49] VITALS: TEMP 98.3
[2022-10-05 08:50] VITALS: BP 99/57
[2022-10-05] MEDS ORDERED: Atorvastatin Calcium 40 MG TAB PO SCH ×2 (09:00)
[2022-10-05] MEDS ORDERED: Empagliflozin 10 MG TAB PO SCH (09:00)
[2022-10-05] MEDS ORDERED: Aspirin 81 mg Enteric Coated Tablet PO SCH (09:00)
[2022-10-05] MEDS ORDERED: Amlodipine 5 MG TAB PO SCH ×2 (09:00)
[2022-10-05] MEDS ORDERED: Lisinopril 10 MG TAB PO SCH ×2 (09:00)
[2022-10-05] MEDS: Famotidine 20 MG TAB PO SCH (09:29)
== END 2022-10-05 10:25 | disposition home or self-care (01) ==
LOC: ERS 20:57 → 2SW 23:50
PROVIDERS: ADMIT Student in an Organized Health Care Education/Training Program; ATTEND Hospitalist
DX: G90.A Postural orthostatic tachycardia syndrome [POTS] (principal); E11.9 Type 2 diabetes mellitus without complications; I10 Essential (primary) hypertension; E78.5 Hyperlipidemia, unspecified; I25.10 Atherosclerotic heart disease of native coronary artery without angina pectoris; N17.9 Acute kidney failure, unspecified; F17.210 Nicotine dependence, cigarettes, uncomplicated; Z79.82 Long term (current) use of aspirin; Z79.899 Other long term (current) drug therapy; Z79.4 Long term (current) use of insulin; Z90.89 Acquired absence of other organs
CPT/HCPCS: 36415; 36416; 70450; 70553; 71045; 72125; 80048; 80053; 80306; 80307; 83735; 84100; 84146; 84443; 84484; 85025; 90471; 90715; 93005; 93306; 93880; 95816; 95819; 95957; A9579; G0378; J7050